=== PATIENT | male | born 1965 | race Two or more races ===

== ENCOUNTER 2020-06-11 16:24 | Emergency (ER) | payer OTHER ==
[~2020-06-11] VITALS: Ht 165.1 cm; Wt 77.6 kg
[2020-06-11] MEDS ORDERED: SODIUM CHLORIDE 0.9% 1000ML 1,000 ML IV STA (16:46)
[2020-06-11] MEDS ORDERED: MAALOX MAXIMUM355 ML PO (16:58)
[2020-06-11] MEDS ORDERED: OMEPRAZOLE40 MG PO (16:58)
[2020-06-11] MEDS ORDERED: IOPAMIDOL 370 MG/ML 200 ML INFUS..BTL INJ ONE (17:00)
[2020-06-11] MEDS ORDERED: SODIUM CHLORIDE 0.9% 50ML 50 ML ONE (17:00)
[2020-06-11] MEDS ORDERED: FAMOTIDINE 20 MG/2 ML VIAL IV ONE ×2 (17:00→17:10)
[2020-06-11] MEDS ORDERED: SODIUM CHLORIDE 0.9% 1000ML 1,000 ML ONE (17:09)
== END 2020-06-11 18:25 | disposition home or self-care (01) ==
LOC: FSED 16:50
DX: R11.2 Nausea with vomiting, unspecified (principal); R10.13 Epigastric pain; K29.70 Gastritis, unspecified, without bleeding
CPT/HCPCS: 99283; J7030; Q9967